=== PATIENT | male | born 1940 | race Caucasian/White ===

== ENCOUNTER 2018-10-10 10:17 | Inpatient (IN) ==
[2018-10-10 10:54] LABS: Baso # (Auto) 0.1 th/mm3 (0.0-0.2); Baso % (Auto) 0.7 % (0.0-2.0); Eos # (Auto) 0.2 th/mm3 (0.0-0.4); Hematocrit 42.5 % (39.0-51.0); Hemoglobin 14.1 gm/dL (13.0-17.0); Lymph # (Auto) 1.9 th/mm3 (1.0-4.8); Lymph % (Auto) 18.2 % (9.0-44.0); Mean Corpuscular HGB Conc 33.2 % (32.0-36.0); Mean Corpuscular Hemoglobin 32.8 pg (27.0-34.0); Mean Corpuscular Volume 98.8 fL (80.0-100.0); Mean Platelet Volume 7.9 fL (7.0-11.0); Mono # (Auto) 1.6 th/mm3 (0.0-0.9); Mono % (Auto) 15.5 % (0.0-8.0); Neut # (Auto) 6.4 th/mm3 (1.8-7.7); Neut % (Auto) 63.6 % (16.0-70.0); Platelet Count 274 th/mm3 (150-450); Red Blood Count 4.31 mil/mm3 (4.50-5.90); Red Cell Distribution Width 12.6 % (11.6-17.2); White Blood Count 10.3 th/mm3 (4.0-11.0)
[2018-10-10 11:03] LABS: Chloride 104 meq/L (98-107); Potassium 4.5 meq/L (3.5-5.1); Sodium 137 meq/L (136-145)
[2018-10-10 11:07] LABS: Albumin 3.7 g/dL (3.4-5.0); Anion Gap 6 meq/L (5-15); Blood Urea Nitrogen 29 mg/dL (7-18); Glucose,Random 96 mg/dL (74-106)
[2018-10-10 11:10] LABS: Alanine Aminotransferase 21 U/L (12-78); Aspartate Aminotransferase 22 U/L (15-37); Glomerular Filtration Rate 53 mL/min (>89)
[2018-10-10 11:12] LABS: Total Protein 7.1 g/dL (6.4-8.2)
[2018-10-10 11:13] LABS: Alkaline Phosphatase 110 U/L (45-117)
--- NOTE | 2018-10-10 11:32 | ED ---
HPI General Chief complaint: Recheck/Abnormal Lab/Rx Stated complaint: Sent By Dr BRUNO 18/Jb Leg Pain since Tuesday Time Seen by Provider: 10/10/18 10:30 Source: patient and family History of Present Illness HPI narrative: 78-year-old male presents to the emergency room with his daughter complaining of bilateral ankle and feet pain that started yesterday. Patient was sent to the emergency room by his cardiology he did INR of 18. Patient has a past medical history of atrial fibrillation, congestive heart failure,and hypertension. Patient has been on Coumadin for the last month since the initial diagnosis of atrial fibrillation. Patient takes 5 mg of Coumadin daily except on Fridays he takes 2.5 mg. Patient denies taking other medications at this time, alcohol use, recent surgery, NSAIDs or recent trauma. Patient states he lives on the second floor and has been having difficulty climbing up stairs due to bilateral ankle and feet pain. Pain is moderate to severe worse with palpation and movement and better with rest. He also noticed a rash on the same area. Patient also noticed multiple bruising on both arms. Related Data Home Medications Medication Instructions Recorded Confirmed benazepril 20 mg PO BID 09/12/18 10/10/18 amiodarone 200 mg PO BID 10/10/18 10/10/18 warfarin [Coumadin] 2.5 mg PO DAILY 10/10/18 10/10/18 warfarin [Coumadin] 5 mg PO DAILY 10/10/18 10/10/18 Allergies Allergy/AdvReac Type Severity Reaction Status Date / Time No Known Allergies Allergy Verified 09/12/18 13:20 Review of Systems ROS: all other systems reviewed are negative Constitutional Denies fever(s) Eyes Denies change in vision ENT Denies headache(s) and Denies nasal congestion Cardiovascular Denies chest pain Respiratory Denies dyspnea Gastrointestinal Denies abdominal pain Genitourinary Denies difficulty urinating Musculoskeletal Denies myalgias Comments: Bilateral ankle and feet pain Integumentary/Breasts Reports rash Neurologic Denies headache(s) Psychiatric Denies depression Endocrine Denies polyuria Hematologic/Lymphatic Denies easy bruising PMFSH Medical History Medical History Atrial fibrillation (Acute) Hypertension (Acute) Surgical History Surgical History No history of previous surgery (Acute) Social History Social History Substance History: No History of Abuse Second Hand Smoke Exposure: No Smoking Status: Former smoker How Often Do You Have a Drink Containing Alcohol: 2 to 4 times a month Recent Travel in [facility] within the Last 8 Weeks: No Recent Out of Country Travel within the Last 8 Weeks: No Immunization History Tetanus Immunization: Unsure Exam Narrative Exam Narrative: GENERAL: Patient is alert and oriented -3 SKIN: Focused skin assessment warm/dry. HEAD: Atraumatic. Normocephalic. EYES: Pupils equal and round. No scleral icterus. No injection or drainage. ENT: No nasal bleeding or discharge. Mucous membranes pink and moist. NECK: Trachea midline. No JVD. CARDIOVASCULAR: Regular rate and rhythm. No murmur appreciated. RESPIRATORY: No accessory muscle use. Clear to auscultation. Breath sounds equal bilaterally. GASTROINTESTINAL: Abdomen soft, non-tender, nondistended. Hepatic and splenic margins not palpable. MUSCULOSKELETAL: No obvious deformities. No clubbing. No cyanosis. Bilateral pitting edema on both ankles and feet with petechiae. There is a tender area on the exterior aspects of both ankles and shins with a palpable small lumps. NEUROLOGICAL: Awake and alert. No obvious cranial nerve deficits. Motor grossly within normal limits. Normal speech. PSYCHIATRIC: Appropriate mood and affect; insight and judgment normal. Course Reevaluation(s) Reevaluation #1: Patient condition improved during the ER course. I personally reexamined and counseled the patient about his diagnosis and results. Patient remained stable. Pain is under control. No change in mental status. Time: 13:19 Initial Documented Vital Signs Temperature 98.1 F 10/10/18 10:23 Pulse Rate 75 10/10/18 10:23 Respiratory Rate 18 10/10/18 10:23 Blood Pressure 160/89 H 10/10/18 10:23 Pulse Oximetry 98 10/10/18 10:23 Last Documented Vital Signs Temperature 98.1 F 10/10/18 10:23 Pulse Rate 72 10/10/18 12:46 Respiratory Rate 18 10/10/18 12:46 Blood Pressure 171/89 H 10/10/18 12:46 Pulse Oximetry 97 10/10/18 12:46 Medical Decision Making MDM Narrative Medical Screen Exam Complete: Yes Emergency Medical Condition: Yes Lab Data Result diagrams: 10/10/18 10:45 10/10/18 10:45 Lab Results 10/10/18 10/10/18 10/10/18 Range/Units 10:45 10:45 10:45 CBC w Diff Auto diff final WBC 10.3 (4.0-11.0) th/mm3 RBC 4.31 L (4.50-5.90) mil/mm3 Hgb 14.1 (13.0-17.0) gm/dL Hct 42.5 (39.0-51.0) % MCV 98.8 (80.0-100.0) fL MCH 32.8 (27.0-34.0) pg MCHC 33.2 (32.0-36.0) % RDW 12.6 (11.6-17.2) % Plt Count 274 (150-450) th/mm3 MPV 7.9 (7.0-11.0) fL Neut % (Auto) 63.6 (16.0-70.0) % Lymph % (Auto) 18.2 (9.0-44.0) % Burt % (Auto) 15.5 H (0.0-8.0) % Eos % (Auto) 2.0 (0.0-4.0) % Baso % (Auto) 0.7 (0.0-2.0) % Neut # (Auto) 6.4 (1.8-7.7) th/mm3 Lymph # (Auto) 1.9 (1.0-4.8) th/mm3 Burt # (Auto) 1.6 H (0.0-0.9) th/mm3 Eos # (Auto) 0.2 (0.0-0.4) th/mm3 Baso # (Auto) 0.1 (0.0-0.2) th/mm3 WBC Differential . Differential Comment . PT Greater than 180.0 H D (9.8-11.6) sec INR Greater than 14.5 H* Ratio APTT 97.5 H* (23.4-31.7) sec Sodium 137 (136-145) meq/L Potassium 4.5 (3.5-5.1) meq/L Chloride 104 (98-107) meq/L Carbon Dioxide 27.0 (21.0-32.0) meq/L Anion Gap 6 (5-15) meq/L BUN 29 H (7-18) mg/dL Creatinine 1.30 (0.60-1.30) mg/dL Estimated GFR 53 L (>89) mL/min Random Glucose 96 (74-106) mg/dL Calcium 9.0 (8.5-10.1) mg/dL Total Bilirubin 1.0 (0.2-1.0) mg/dL AST 22 (15-37) U/L ALT 21 (12-78) U/L Alkaline Phosphatase 110 (45-117) U/L Total Protein 7.1 (6.4-8.2) g/dL Albumin 3.7 (3.4-5.0) g/dL Imaging Data Radiologist's impression: Head CT 10/10/18 11:44 CONCLUSION: 1. No acute intracranial abnormality is identified. Discharge Plan Discharge Disposition Patient Disposition: ED Admit(ED Internal Use Only) Discharge Order Discharge Orders: ED Use Only Admit Order (Routine); Ordered 10/10/18 Ordered By: Vimal Houser Discharge Details Discharge Comment: Case discussed with admitting physician who accepted admission as an observation Diagnosis: Warfarin-induced coagulopathy, Hematoma of left lower extremity, Bilateral leg pain Physicians Team ED Provider: Vimal Houser Primary Care Provider: David Webster Rxs /Orders / Referrals /Forms Prescriptions: No Action amiodarone 200 mg Tablet 200 mg PO BID RF: 0 warfarin [Coumadin] 2.5 mg Tablet 2.5 mg PO DAILY RF: 0 warfarin [Coumadin] 5 mg Tablet 5 mg PO DAILY RF: 0 benazepril 20 mg Tablet 20 mg PO BID RF: 0 Discharge Interventions Interventions: Vital Signs Last Done: 10/10/18 12:46 Status ED Status: With Doctor
[2018-10-10 11:43] LABS: Activated Partial Thrombo Time 97.5 sec (23.4-31.7)
--- NOTE | 2018-10-10 12:49 | CT ---
EXAM DATE: 10/10/2018 12:33 PM EST AGE/SEX: 78 years / Male INDICATIONS: Memory loss and bilateral leg pain. CLINICAL DATA: This is the patient's initial encounter. Patient reports that signs and symptoms have been present for 4 - 6 days and indicates a pain score of 8/10. MEDICAL/SURGICAL HISTORY: Hypertension. Atrial fibrillation. None. RADIATION DOSE: 58.42 CTDI (mGy) COMPARISON: No prior exams available for comparison. TECHNIQUE: CT of the head without contrast. Using automated exposure control and adjustment of the mA and/or kV according to patient size, radiation dose was kept as low as reasonably achievable to ob tain optimal diagnostic quality images. DICOM format image data is available electronically for revi ew and comparison. FINDINGS: Cerebrum: The ventricles are normal for age. No evidence of midline shift, mass lesion, hemorrhage or acute infarction. No extraaxial fluid collections are seen. Posterior Fossa: The cerebellum and brainstem are intact. The 4th ventricle is midline. The cerebe llopontine angle is unremarkable. Extracranial: The visualized portion of the orbits is intact. Skull: The calvaria is intact. No evidence of skull fracture. CONCLUSION: 1. No acute intracranial abnormality is identified. Electronically signed by: Chuck Cortes MD Board Certified Radiologist 10/10/2018 12:48 PM EST
[2018-10-10] MEDS ORDERED: Morphine Inj 4 MG/ML Vial IV.PUSH ONE (13:04)
[2018-10-10 16:03] LABS: INR 3.1 Ratio; Prothrombin Time 31.4 sec (9.8-11.6)
--- NOTE | 2018-10-10 16:27 | P.HP ---
History of Present Illness Service: [facility] adult med Primary Care Physician: David Webster MD Chief Complaint: directed to ER due to "thin blood", hemoptysis, ankle pain History of Present Illness: 78-year-old male presents to the emergency room with his daughter complaining of bilateral ankle and feet pain that started yesterday. Patient was sent to the emergency room by his cardiology due to outpt INR of 18. Patient has a past medical history of atrial fibrillation, congestive heart failure,and hypertension. Patient has been on Coumadin for the last month since the initial diagnosis of atrial fibrillation. Patient takes 5 mg of Coumadin daily except on Fridays he takes 2.5 mg. Denies alcohol use, recent surgery, NSAIDs or recent trauma. Patient states he lives on the second floor and has been having difficulty climbing up stairs due to bilateral ankle and feet pain. Pain is moderate to severe worse with palpation and movement and better with rest. He also noticed a rash on the same area. Patient also noticed multiple bruising on both arms. He has been coughing for appx 1 week and initially noted clear phlegm but has noted blood-tinged phlegm the last 2 days. It is noted that his outpatient INRs have been somewhat erratic with his last INR 2.5 approximately 2 weeks ago. 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[facility], subsequently worked at [employer] in the [employer] department here locally - Diagnosis (1) Warfarin-induced coagulopathy (2) Atrial fibrillation (3) CKD (chronic kidney disease), stage III (4) Cardiomyopathy (5) Major depressive disorder (6) Hypertension Review of Systems Constitutional: Reports fatigue, Reports weakness Ears, Nose, Mouth, and Throat: Reports abnormal hearing Cardiovascular: Reports irregular heart rhythm, Denies chest pain, Denies chest pain at rest, Denies chest pain with activity, Denies excessive sweating, Denies fainting, Denies fast heart rate, Denies foot swelling, Denies generalized swelling, Denies leg pain with activity, Denies leg sores, Denies leg swelling, Denies lightheadedness, Denies radiating jaw, neck or arm pain, Denies rapid, pounding, or irregular heartbeat, Denies shortness of breath, Denies shortness of breath with activity, Denies shortness of breath when lying down, Denies shortness of breath causing sudden awakening, Denies slow heart rate, Denies other Respiratory: Reports change in phlegm color, Reports cough, Reports coughing up blood, Denies chest congestion, Denies excessive phlegm production, Denies pain on inspiration, Denies pain with cough, Denies shortness of breath, Denies shortness of breath with activity, Denies snoring, Denies stridor, Denies wheezing, Denies other Gastrointestinal: Denies abdominal pain, Denies belching, Denies black, tarry stools, Denies bloating, Denies bright, red blood in stools, Denies change in bowel habits, Denies constant urge to pass stool, Denies change in stools, Denies coffee ground vomit, Denies constipation, Denies cramping, Denies difficulty swallowing, Denies excessive passing of gas, Denies feeling full early, Denies heartburn, Denies incontinent of stools, Denies loose stools, Denies nausea, Denies pain with swallowing, Denies vomiting, Denies vomiting blood, Denies other Musculoskeletal: Reports abnormal walking, Reports joint pain Skin/Breast: Reports redness, Reports unusual bruising Neurologic: Reports abnormal hearing Psychiatric: Reports anxiety Hematologic/Lymphatic: Reports easy bleeding, Reports easy bruising PMFSH - History History Provided By: Patient - Medical / Surgical Hx Neg / Unobtainable Surgical History: No Previous Surgery - Medical History Medical History: Medical History (Last Updated 10/10/18 @ 16:12 by Ascencion Rodriguez MD, PhD) Major depressive disorder (Acute) CKD (chronic kidney disease), stage III (Acute) Cardiomyopathy (Acute) Atrial fibrillation (Acute) Hypertension (Acute) Anxiety Purpura - Surgical History Surgical History: Surgical History (Last Reviewed 10/10/18 @ 11:30 by Vimal Houser) No history of previous surgery - Family History Family History: Family History (Last Updated 10/10/18 @ 16:07 by Ascencion Rodriguez MD, PhD) Other Family history non-contributory - Social History I have reviewed the patient's Social History: Yes - Tobacco History Second Hand Smoke Exposure: No Tobacco Use In Past 30 Days: No Smoking Status: Former smoker Tobacco Type: Cigarettes Packs Per Day: 1.5 Years Smoked: 58 Smoking End Date: appx 2014 - Alcohol History How Often Do You Have a Drink Containing Alcohol: 2 to 4 times a month - Substance Use History Substance History: No History of Abuse - Travel History Recent Travel in the [place] Within the Last 8 Weeks: No Recent Travel Out of the Country Within the Last 8 Weeks: No - Immunization History Tetanus Immunization: Unsure Medications and Allergies Allergies Allergy/AdvReac Type Severity Reaction Status Date / Time No Known Allergies Allergy Verified 09/12/18 13:20 Home Medications Medication Instructions Recorded Confirmed Type benazepril 20 mg PO BID 09/12/18 10/10/18 History amiodarone 200 mg PO BID 10/10/18 10/10/18 History spironolactone [Aldactone] 25 mg PO DAILY 10/10/18 10/10/18 History warfarin [Coumadin] 2.5 mg PO DAILY 10/10/18 10/10/18 History warfarin [Coumadin] 5 mg PO DAILY 10/10/18 10/10/18 History Exam Vital signs: Vital Signs 10/10/18 10:23 10/10/18 10:27 10/10/18 12:18 Temperature 98.1 F Pulse Rate 75 70 64 Respiratory Rate 18 18 18 Blood Pressure 160/89 H 140/65 151/71 H Pulse Oximetry 98 98 98 10/10/18 12:46 10/10/18 13:43 10/10/18 15:52 Temperature 98.2 F Pulse Rate 72 65 65 Respiratory Rate 18 18 20 Blood Pressure 171/89 H 131/62 145/69 H Pulse Oximetry 97 97 96 Intake & Output 10/09/18 10/10/18 10/10/18 18:59 06:59 18:59 Intake Total Balance Weight 64 kg Intake: IV Vitamin K Inj 10 MG In D5W Inj 50 ML @ 102 mls/hr IV.SIG ONCE ONE Rx#:[id number] Narrative: GENERAL: No acute distress, hard of hearing, alert and oriented, cooperative with exam. SKIN: Warm and dry. Areas of purpura on forearms and some mild erythema bilateral lateral condyles around ankles. Mild venous stasis derm in distal LE. No active bleeding appreciated. HEAD: Atraumatic. Normocephalic. EYES: Pupils equal and round. No scleral icterus. No injection or drainage. ENT: No nasal bleeding or discharge. Mucous membranes pink and moist. Hearing aids bilaterally. NECK: Trachea midline. No JVD. CARDIOVASCULAR: Regular rate and rhythm. No significant murmurs appreciated. RESPIRATORY: No accessory muscle use. Clear to auscultation. Breath sounds equal bilaterally. GASTROINTESTINAL: Abdomen soft, non-tender, nondistended. Hepatic and splenic margins not palpable. MUSCULOSKELETAL: Extremities without clubbing, cyanosis. Trace to 1+ edema bilateral feet with some mild erythema and edema particularly around lateral condyles with associated tenderness to palpation. Patient has pain upon joint movement at the ankles but is able to move them freely. No obvious deformities. NEUROLOGICAL: Awake and alert. No obvious cranial nerve deficits with the exception of hearing deficit. Motor grossly within normal limits. Five out of 5 muscle strength in the arms and legs. Normal speech. PSYCHIATRIC: Appropriate mood and affect; insight and judgment normal. Results - Labs CBC & Chem 7: 10/10/18 10:45 10/10/18 10:45 Labs: Laboratory Results - last 24 hr 10/10/18 10/10/18 10/10/18 10:45 10:45 10:45 CBC w Diff Auto diff final WBC 10.3 RBC 4.31 L Hgb 14.1 Hct 42.5 MCV 98.8 MCH 32.8 MCHC 33.2 RDW 12.6 Plt Count 274 MPV 7.9 Neut % (Auto) 63.6 Lymph % (Auto) 18.2 [place] % (Auto) 15.5 H Eos % (Auto) 2.0 Baso % (Auto) 0.7 Neut # (Auto) 6.4 Lymph # (Auto) 1.9 [place] # (Auto) 1.6 H Eos # (Auto) 0.2 Baso # (Auto) 0.1 WBC Differential . Differential Comment . PT Greater than 180.0 H D INR Greater than 14.5 H* APTT 97.5 H* Sodium 137 Potassium 4.5 Chloride 104 Carbon Dioxide 27.0 Anion Gap 6 BUN 29 H Creatinine 1.30 Estimated GFR 53 L Random Glucose 96 Calcium 9.0 Total Bilirubin 1.0 AST 22 ALT 21 Alkaline Phosphatase 110 Total Protein 7.1 Albumin 3.7 - Imaging Impressions Head CT 10/10/18 11:44 CONCLUSION: 1. No acute intracranial abnormality is identified. Caprini VTE Risk Assessment Caprini VTE Risk Assessment: Moderate/High Risk (score >= 2) VTE Pharmacological Exception Reason: Coagulopathy,INR elevated, High risk for bleeding Caprini Risk Assessment Model: Point Value = 1 Point Value = 2 Point Value = 3 Point Value = 5 Age 41-60 Minor surgery BMI > 25 kg/m2 Swollen legs Varicose veins or History of unexplained or recurrent spontaneous Oral contraceptives or hormone replacement Sepsis (< 1 month) Serious lung disease, including pneumonia (< 1 month) Abnormal pulmonary function Acute myocardial infarction Congestive heart failure (< 1 month) History of inflammatory bowel disease Medical patient at bed rest Age 61-74 Arthroscopic surgery Major open surgery (> 45 min) Laparoscopic surgery (> 45 min) Malignancy Confined to bed (> 72 hours) Immobilizing plaster cast Central venous access Age >= 75 History of VTE Family history of VTE Factor V Leiden Prothrombin [id number] Lupus anticoagulant Anticardiolipin antibodies Elevated serum homocysteine Heparin-induced thrombocytopenia Other congenital or acquired thrombophilia Stroke (< 1 month) Elective arthroplasty Hip, pelvis, or leg fracture Acute spinal cord injury (< 1 month) Prophylaxis Regimen: Total Risk Factor Score Risk Level Prophylaxis Regimen 0-1 Low Early ambulation 2 Moderate Order ONE of the following: *Sequential Compression Device (SCD) *Heparin 5000 units SQ BID 3-4 Higher Order ONE of the following medications: *Heparin 5000 units SQ TID *Enoxaparin/Lovenox 40 mg SQ daily (WT < 150 kg, CrCl > 30 mL/min) *Enoxaparin/Lovenox 30 mg SQ daily (WT < 150 kg, CrCl > 10-29 mL/min) *Enoxaparin/Lovenox 30 mg SQ BID (WT < 150 kg, CrCl > 30 mL/min) AND/OR *Sequential Compression Device (SCD) 5 or more Highest Order ONE of the following medications: *Heparin 5000 units SQ TID (Preferred with Epidurals) *Enoxaparin/Lovenox 40 mg SQ daily (WT < 150 kg, CrCl > 30 mL/min) *Enoxaparin/Lovenox 30 mg SQ daily (WT < 150 kg, CrCl > 10-29 mL/min) *Enoxaparin/Lovenox 30 mg SQ BID (WT < 150 kg, CrCl > 30 mL/min) AND *Sequential Compression Device (SCD) Assessment and Plan - Assessment (1) Warfarin-induced coagulopathy Code(s): D68.32 - Hemorrhagic disorder due to extrinsic circulating anticoagulants; T45.515A - Adverse effect of anticoagulants, initial encounter Status: Acute Plan: INR significantly elevated and pt has some mild hemoptysis. Appears quite hemodynamically stable. He has been given vitamin K and will follow INR, CBC. Watch for any signs of bleeding. Observe fall precautions. Additionally patient may have a small bilateral ankle hemarthroses. Will elevate lower extremities and apply ice 3 times a day. Will monitor for progression. If ankles swell more or become exquisitely painful, will have orthopedics see patient. (2) Atrial fibrillation Code(s): I48.91 - Unspecified atrial fibrillation Status: Acute Plan: Rate controlled. Patient appears to be in sinus rhythm on exam today. Hold warfarin as noted due to supratherapeutic INR. (3) CKD (chronic kidney disease), stage III Code(s): N18.3 - Chronic kidney disease, stage 3 (moderate) Status: Chronic Plan: Appears stable. (4) Cardiomyopathy Code(s): I42.9 - Cardiomyopathy, unspecified Status: Acute Plan: systolic failure with EF around 25-30% based on [place] done in August 2018. continue medication. Follow with cardiology. No overt failure on exam. (5) Major depressive disorder Code(s): F32.9 - Major depressive disorder, single episode, unspecified Status : Chronic Plan: Stable. (6) Hypertension Code(s): I10 - Essential (primary) hypertension Status: Chronic Plan: Continue outpatient medication as blood pressure allows. - Plan Code Status: full Discussed Condition With: Patient and ER provider (2) Atrial fibrillation Qualifiers: Atrial fibrillation type: paroxysmal Qualified Code(s): I48.0 - Paroxysmal atrial fibrillation (5) Major depressive disorder Qualifiers: Major depression recurrence: recurrent (6) Hypertension Qualifiers: Hypertension type: essential hypertension Qualified Code(s): I10 - Essential (primary) hypertension
[2018-10-10] MEDS ORDERED: Morphine Sulfate Inj 2 MG/ML Vial IV.PUSH PRN (18:39)
--- NOTE | 2018-10-11 06:14 | P.PN ---
Subjective Interval history: Overall feeling better. He is not having much pain in his ankles and the swelling has gone down. He is no longer having any blood tinged sputum when he coughs. Physical Exam Vital signs: Vital Signs 10/10/18 10:23 10/10/18 10:27 10/10/18 12:18 Temperature 98.1 F Pulse Rate 75 70 64 Respiratory Rate 18 18 18 Blood Pressure 160/89 H 140/65 151/71 H Pulse Oximetry 98 98 98 10/10/18 12:46 10/10/18 13:43 10/10/18 15:52 Temperature 98.2 F Pulse Rate 72 65 65 Respiratory Rate 18 18 20 Blood Pressure 171/89 H 131/62 145/69 H Pulse Oximetry 97 97 96 10/10/18 20:00 10/11/18 00:00 Temperature 96.6 F L 97.9 F Pulse Rate 69 68 Respiratory Rate 18 18 Blood Pressure 156/69 H 117/62 Pulse Oximetry 93 L 94 L Intake & Output 10/10/18 10/10/18 10/11/18 06:59 18:59 06:59 Intake Total 291 / 291 90 / 90 Output Total 2750 / 2750 Balance 291 / 291 -2660 / -2660 Weight 64 kg 61.7 kg Intake: IV 51 / 51 Vitamin K Inj 10 MG In D5W Inj 51 / 51 50 ML @ 102 mls/hr IV.SIG ONCE ONE Rx#:[id number] Oral 240 / 240 90 / 90 Output: Urine 2750 / 2750 Narrative: GENERAL: No acute distress, hard of hearing, alert and oriented, cooperative with exam. SKIN: Warm and dry. Areas of purpura on forearms and some mild erythema bilateral lateral condyles around ankles. Mild venous stasis derm in distal LE. No active bleeding appreciated. Ankle swelling and redness have decreased. HEAD: Atraumatic. Normocephalic. Oropharynx clear with no bleeding. EYES: Pupils equal and round. No scleral icterus. No injection or drainage. ENT: No nasal bleeding or discharge. Mucous membranes pink and moist. Hearing aids bilaterally. NECK: Trachea midline. No JVD. CARDIOVASCULAR: Regular rate and rhythm. No significant murmurs appreciated. RESPIRATORY: No accessory muscle use. Clear to auscultation. Breath sounds equal bilaterally. GASTROINTESTINAL: Abdomen soft, non-tender, nondistended. Hepatic and splenic margins not palpable. MUSCULOSKELETAL: Extremities without clubbing, cyanosis. Trace edema bilateral feet with some mild erythema. Condyle is more prominent and nontender on today' s exam. Full range of motion of ankles. He has slight pain in the left lateral ankle with full flexion but this is much improved from yesterday. Patient actually ambulated in the room this morning when I came in. NEUROLOGICAL: Awake and alert. No obvious cranial nerve deficits with the exception of hearing deficit. Motor grossly within normal limits. Five out of 5 muscle strength in the arms and legs. Normal speech. PSYCHIATRIC: Appropriate mood and affect; insight and judgment normal. Results - Labs CBC & Chem 7: 10/10/18 10:45 10/10/18 10:45 Laboratory Results - last 24 hr 10/10/18 10/10/18 10/10/18 10:45 10:45 10:45 CBC w Diff Auto diff final WBC 10.3 RBC 4.31 L Hgb 14.1 Hct 42.5 MCV 98.8 MCH 32.8 MCHC 33.2 RDW 12.6 Plt Count 274 MPV 7.9 Neut % (Auto) 63.6 Lymph % (Auto) 18.2 [place] % (Auto) 15.5 H Eos % (Auto) 2.0 Baso % (Auto) 0.7 Neut # (Auto) 6.4 Lymph # (Auto) 1.9 [place] # (Auto) 1.6 H Eos # (Auto) 0.2 Baso # (Auto) 0.1 WBC Differential . Differential Comment . PT Greater than 180.0 H D INR Greater than 14.5 H* APTT 97.5 H* Sodium 137 Potassium 4.5 Chloride 104 Carbon Dioxide 27.0 Anion Gap 6 BUN 29 H Creatinine 1.30 Estimated GFR 53 L Random Glucose 96 Calcium 9.0 Total Bilirubin 1.0 AST 22 ALT 21 Alkaline Phosphatase 110 Total Protein 7.1 Albumin 3.7 10/10/18 15:40 CBC w Diff WBC RBC Hgb Hct MCV MCH MCHC RDW Plt Count MPV Neut % (Auto) Lymph % (Auto) [place] % (Auto) Eos % (Auto) Baso % (Auto) Neut # (Auto) Lymph # (Auto) [place] # (Auto) Eos # (Auto) Baso # (Auto) WBC Differential Differential Comment PT 31.4 H D INR 3.1 APTT Sodium Potassium Chloride Carbon Dioxide Anion Gap BUN Creatinine Estimated GFR Random Glucose Calcium Total Bilirubin AST ALT Alkaline Phosphatase Total Protein Albumin - Imaging Impressions Head CT 10/10/18 11:44 CONCLUSION: 1. No acute intracranial abnormality is identified. Assessment and Plan - Assessment (1) Warfarin-induced coagulopathy Code(s): D68.32 - Hemorrhagic disorder due to extrinsic circulating anticoagulants; T45.515A - Adverse effect of anticoagulants, initial encounter Status: Acute Plan: INR significantly elevated and pt has some mild hemoptysis. Appears quite hemodynamically stable. He has been given vitamin K and will follow INR, CBC. Watch for any signs of bleeding. Observe fall precautions. INR responded well to vitamin K yesterday. A.m. labs pending. Ankles much improved with elevation and ice application. (2) Atrial fibrillation Code(s): I48.91 - Unspecified atrial fibrillation Status: Acute Plan: Rate controlled. Patient appears to be in sinus rhythm on exam again today. Hold warfarin as noted due to supratherapeutic INR. (3) CKD (chronic kidney disease), stage III Code(s): N18.3 - Chronic kidney disease, stage 3 (moderate) Status: Chronic Plan: Appears stable. (4) Cardiomyopathy Code(s): I42.9 - Cardiomyopathy, unspecified Status: Acute Plan: systolic failure with EF around 25-30% based on [place] done in August 2018. continue medication. Follow with cardiology. No overt failure on exam. (5) Major depressive disorder Code(s): F32.9 - Major depressive disorder, single episode, unspecified Status : Chronic Plan: Stable. (6) Hypertension Code(s): I10 - Essential (primary) hypertension Status: Chronic Plan: Continue outpatient medication as blood pressure allows. - Plan Discharge Planning: Possibly discharge home later today or tomorrow. (2) Atrial fibrillation Qualifiers: Atrial fibrillation type: paroxysmal Qualified Code(s): I48.0 - Paroxysmal atrial fibrillation (5) Major depressive disorder Qualifiers: Major depression recurrence: recurrent (6) Hypertension Qualifiers: Hypertension type: essential hypertension Qualified Code(s): I10 - Essential (primary) hypertension
[2018-10-11 06:43] LABS: Baso % (Auto) 0.3 % (0.0-2.0); Eos # (Auto) 0.3 th/mm3 (0.0-0.4); Hemoglobin 13.2 gm/dL (13.0-17.0); Lymph # (Auto) 1.6 th/mm3 (1.0-4.8); Lymph % (Auto) 22.3 % (9.0-44.0); Mean Corpuscular HGB Conc 32.9 % (32.0-36.0); Mean Corpuscular Hemoglobin 32.3 pg (27.0-34.0); Mean Corpuscular Volume 98.2 fL (80.0-100.0); Mean Platelet Volume 8.5 fL (7.0-11.0); Mono # (Auto) 1.1 th/mm3 (0.0-0.9); Mono % (Auto) 15.3 % (0.0-8.0); Neut # (Auto) 4.3 th/mm3 (1.8-7.7); Neut % (Auto) 58.1 % (16.0-70.0); Platelet Count 264 th/mm3 (150-450); Red Blood Count 4.07 mil/mm3 (4.50-5.90); White Blood Count 7.4 th/mm3 (4.0-11.0)
[2018-10-11 07:55] LABS: INR 1.3 Ratio; Prothrombin Time 12.8 sec (9.8-11.6)
[2018-10-11 09:32] VITALS: RESP 20
--- NOTE | 2018-10-11 13:07 | P.DS ---
Date of admission: 10/10/18 13:17 Primary care physician: David Webster MD Anticipated date of discharge: 10/11/18 Brief History from admission: 78-year-old male presents to the emergency room with his daughter complaining of bilateral ankle and feet pain that started yesterday. Patient was sent to the emergency room by his cardiology due to outpt INR of 18. Patient has a past medical history of atrial fibrillation, congestive heart failure,and hypertension. Patient has been on Coumadin for the last month since the initial diagnosis of atrial fibrillation. Patient takes 5 mg of Coumadin daily except on Fridays he takes 2.5 mg. Denies alcohol use, recent surgery, NSAIDs or recent trauma. Patient states he lives on the second floor and has been having difficulty climbing up stairs due to bilateral ankle and feet pain. Pain is moderate to severe worse with palpation and movement and better with rest. He also noticed a rash on the same area. Patient also noticed multiple bruising on both arms. He has been coughing for appx 1 week and initially noted clear phlegm but has noted blood-tinged phlegm the last 2 days. It is noted that his outpatient INRs have been somewhat erratic with his last INR 2.5 approximately 2 weeks ago. 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 INR returned to nml, was 1.3 on d/c. Will resume warfarin at 2.5mg/d on 10/11 with repeat INR on 10/[address] Webster. - Time Spent with Patient Total time spent providing and/or coordinating discharge services: Less than 30 minutes - Quality: VTE Deep Vein Thrombosis/Pulmonary Embolism Present on Admission: No Exam Vital signs: Vital Signs 10/10/18 13:43 10/10/18 15:52 10/10/18 20:00 Temperature 98.2 F 96.6 F L Pulse Rate 65 65 69 Respiratory Rate 18 20 18 Blood Pressure 131/62 145/69 H 156/69 H Pulse Oximetry 97 96 93 L 10/11/18 00:00 10/11/18 07:25 10/11/18 08:00 Temperature 97.9 F 96.1 F L Pulse Rate 68 64 Respiratory Rate 18 20 Blood Pressure 117/62 137/65 Pulse Oximetry 94 L 94 L 94 L Intake & Output 10/10/18 10/11/18 10/11/18 18:59 06:59 18:59 Intake Total 291 / 291 90 / 90 Output Total 2750 / 2750 Balance 291 / 291 -2660 / -2660 Weight 64 kg 61.7 kg Intake: IV 51 / 51 Vitamin K Inj 10 MG In D5W Inj 51 / 51 50 ML @ 102 mls/hr IV.SIG ONCE ONE Rx#:[id number] Oral 240 / 240 90 / 90 Output: Urine 2750 / 2750 Other: Date of Last Bowel Movement 10/09/18 Results Procedures completed during hospitalization: None Labs on day of discharge: Labs from last 24 hours 10/11/18 10/11/18 10/11/18 05:48 05:48 05:48 CBC w Diff Auto diff final WBC 7.4 RBC 4.07 L Hgb 13.2 Hct 40.0 MCV 98.2 MCH 32.3 MCHC 32.9 RDW 13.0 Plt Count 264 MPV 8.5 Neut % (Auto) 58.1 Lymph % (Auto) 22.3 [place] % (Auto) 15.3 H Eos % (Auto) 4.0 Baso % (Auto) 0.3 Neut # (Auto) 4.3 Lymph # (Auto) 1.6 [place] # (Auto) 1.1 H Eos # (Auto) 0.3 Baso # (Auto) 0.0 WBC Differential . Differential Comment . PT 12.8 H D INR 1.3 APTT 35.8 H D 10/10/18 15:40 CBC w Diff WBC RBC Hgb Hct MCV MCH MCHC RDW Plt Count MPV Neut % (Auto) Lymph % (Auto) [place] % (Auto) Eos % (Auto) Baso % (Auto) Neut # (Auto) Lymph # (Auto) [place] # (Auto) Eos # (Auto) Baso # (Auto) WBC Differential Differential Comment PT 31.4 H D INR 3.1 APTT - Impressions ITS Impressions Head CT 10/10/18 11:44 CONCLUSION: 1. No acute intracranial abnormality is identified. Discharge Plan - Discharge Disposition Patient Disposition: Discharge Home - Discharge Condition Condition: Good - Discharge Order Discharge Orders: Discharge Order (Routine); Ordered 10/11/18 Ordered By: Ascencion Rodriguez - Discharge Details Anticipated Discharge Date: 10/11/18 - Physicians Team Primary Care Provider: David Webster Attending Provider: Ascencion Rodriguez
[2018-10-11 15:55] VITALS: BP 163/72; TEMP 96.7; O2SAT 94
[2018-10-11 16:41] VITALS: PULSE 71
--- NOTE | 2018-10-12 06:49 | ECG ---
Date Performed: 10/10/2018 Time Performed: 11:48:30 PTAGE: 78 years EKG: Sinus rhythm WITH FIRST DEGREE AV BLOCK MARKED LEFT AXIS DEVIATION POSSIBLE LEFT VENTRICULAR HYPERTROPHY POSSIBLE SEPTAL MYOCARDIAL INFARCTION ABNORMAL ECG PREVIOUS TRACING : 09/12/2018 14.44 Since the previous tracing, no significant change noted DOCTOR: All So Interpretating Date/Time 10/12/2018 06:47:04
== END 2018-10-11 17:38 | disposition home or self-care (01) | DRG 948 ==
LOC: PHED 10:17 → PHEDA 10:17 → OBSVTOIN 13:17 → PH3 13:53
PROVIDERS: ADMIT Family Medicine; ATTEND Family Medicine
CPT/HCPCS: 70450; 80053; 85025; 85610; 85730; 93005; 97162; J2270; J2405; J3430